=== PATIENT | female | born 1995 | race Caucasian/White ===

== ENCOUNTER 2017-02-10 15:05 | Emergency (ER) | payer MEDICAID, OTHER ==
[~2017-02-10] VITALS: Ht 152.4 cm; Wt 47.0 kg
[2017-02-10] MEDS ORDERED: IBUPROFEN 600MG TABLET PO ONE (19:00)
[2017-02-10] MEDS ORDERED: ONDANSETRON 4MG ODT PO ONE (19:00)
[2017-02-10 19:51] VITALS: BP 110/67
== END 2017-02-10 19:57 | disposition home or self-care (01) ==
LOC: ER 15:22
DX: S61.317A Laceration without foreign body of left little finger with damage to nail, initial encounter (principal); W45.8XXA Other foreign body or object entering through skin, initial encounter; Y93.E8 Activity, other personal hygiene; Y92.89 Other specified places as the place of occurrence of the external cause
CPT/HCPCS: 81025; 99283; Q0162

== ENCOUNTER 2018-10-25 12:23 | Emergency (ER) | payer MEDICAID ==
[~2018-10-25] VITALS: Ht 157.5 cm; Wt 60.0 kg
[2018-10-25 15:45] VITALS: BP 116/68
== END 2018-10-25 16:00 | disposition home or self-care (01) ==
LOC: ER 14:53
DX: H72.93 Unspecified perforation of tympanic membrane, bilateral (principal)
CPT/HCPCS: 99282